=== PATIENT | male | born 1955 | race Caucasian/White ===

== ENCOUNTER 2019-11-22 15:03 | Observation (INO) | payer MEDICARE ==
[2019-11-22 15:09] VITALS: RESP 18
--- NOTE | 2019-11-22 15:40 | ED ---
General Adult HPI - General Chief complaint: Chest Pain Stated complaint: Chest heaviness Time Seen by Provider: 11/22/19 15:15 Source: patient, RN notes reviewed, old records reviewed Mode of arrival: ambulatory Limitations: no limitations - History of Present Illness Initial comments: 63-year-old male presenting for evaluation of chest discomfort. Patient has had symptoms of chest tightness for the past 48 hours with some mild dyspnea. No diaphoresis, no vomiting. He has no known history of CAD. He has strong family history of coronary artery disease including his father who had bypass surgery in his 40s. He is a diabetic and has history of hypertension presented nonsmoker. Patient had outpatient stress test at [facility] which showed stress-induced ischemia at the cardiac apex. Patient is currently on aspirin, lisinopril, metformin and statin. He denies symptoms at the time my evaluation, no chest pain, no dyspnea. No abdominal pain. No fever or chills. No cough. No lower extremity pain or swelling. - Related Data Allergies Allergy/AdvReac Type Severity Reaction Status Date / Time No Known Allergies Allergy Verified 11/22/19 15:09 Review of Systems ROS Statement: Those systems with pertinent positive or pertinent negative responses have been documented in the HPI. ROS Other: All systems not noted in ROS Statement are negative. Past Medical History Past Medical History: Diabetes Mellitus, Hypertension History of Any Multi-Drug Resistant Organisms: None Reported Past Surgical History: Cholecystectomy Additional Past Surgical History / Comment(s): retnia Past Psychological History: No Psychological Hx Reported Smoking Status: Former smoker Past Alcohol Use History: Occasional Past Drug Use History: None Reported General Exam Limitations: no limitations General appearance: alert, in no apparent distress Head exam: Present: atraumatic, normocephalic Eye exam: Present: normal appearance, PERRL ENT exam: Present: normal exam Neck exam: Present: normal inspection. Absent: tenderness, meningismus Respiratory exam: Present: normal lung sounds bilaterally. Absent: respiratory distress, wheezes Cardiovascular Exam: Present: regular rate, normal rhythm GI/Abdominal exam: Present: soft. Absent: distended, tenderness Extremities exam: Present: normal inspection, normal capillary refill. Absent: pedal edema, calf tenderness Neurological exam: Present: alert, oriented X3, CN II-XII intact. Absent: motor sensory deficit Psychiatric exam: Present: normal affect, normal mood Skin exam: Present: warm, dry, intact. Absent: cyanosis, diaphoretic Course Vital Signs 11/22/19 15:05 Temperature 97.8 F Pulse Rate 58 L Respiratory 18 Rate Blood Pressure 146/93 O2 Sat by Pulse 98 Oximetry EKG Findings - EKG Comments: EKG Findings:: EKG: Sinus rhythm, rate of 60, left anterior fascicular block T-wave inversion in lead 3, cannot rule out inferior infarct, no ST segment elevation, WV interval 192, QRS duration 114, QTC 428 Medical Decision Making - Medical Decision Making 63-year-old male with vague chest discomfort, positive outpatient stress test. Initial workup reveals normal CBC, normal CMP, negative initial troponin. EKG negative for ST segment elevation. Chest x-ray clear of focal pneumonia, no pneumothorax,, no acute findings. Patient's is given aspirin, initiated on heparin, he will be admitted for unstable angina. Chest pain-free while in the emergency department. Case discussed with Dr. Garcia who will admit patient. Serial cardiac enzymes will be obtained, echo ordered. - Lab Data Result diagrams: 11/22/19 15:32 11/22/19 15:32 Lab Results 11/22/19 11/22/19 11/22/19 Range/Units 15:32 15:32 15:32 WBC 7.5 (3.8-10.6) k/uL RBC 5.52 (4.30-5.90) m/uL Hgb 16.4 (13.0-17.5) gm/dL Hct 46.1 (39.0-53.0) % MCV 83.5 (80.0-100.0) fL MCH 29.7 (25.0-35.0) pg MCHC 35.6 (31.0-37.0) g/dL RDW 12.5 (11.5-15.5) % Plt Count 181 (150-450) k/uL Neutrophils % 48 % Lymphocytes % 37 % Monocytes % 6 % Eosinophils % 4 % Basophils % 2 % Neutrophils # 3.6 (1.3-7.7) k/uL Lymphocytes # 2.8 (1.0-4.8) k/uL Monocytes # 0.4 (0-1.0) k/uL Eosinophils # 0.3 (0-0.7) k/uL Basophils # 0.2 (0-0.2) k/uL PT 10.9 (9.0-12.0) sec INR 1.1 (<1.2) APTT 25.8 (22.0-30.0) sec Sodium 137 (137-145) mmol/L Potassium 4.0 (3.5-5.1) mmol/L Chloride 104 (98-107) mmol/L Carbon Dioxide 22 (22-30) mmol/L Anion Gap 11 mmol/L BUN 14 (9-20) mg/dL Creatinine 0.78 (0.66-1.25) mg/dL Est GFR (CKD-EPI)AfAm >90 (>60 ml/min/1.73 sqM) Est GFR (CKD-EPI)NonAf >90 (>60 ml/min/1.73 sqM) Glucose 110 H (74-99) mg/dL Calcium 9.4 (8.4-10.2) mg/dL Magnesium 2.2 (1.6-2.3) mg/dL Total Bilirubin 1.5 H (0.2-1.3) mg/dL AST 24 (17-59) U/L ALT 24 (4-49) U/L Alkaline Phosphatase 63 (38-126) U/L Troponin I (0.000-0.034) ng/mL Total Protein 7.7 (6.3-8.2) g/dL Albumin 4.6 (3.5-5.0) g/dL 11/22/19 Range/Units 15:32 WBC (3.8-10.6) k/uL RBC (4.30-5.90) m/uL Hgb (13.0-17.5) gm/dL Hct (39.0-53.0) % MCV (80.0-100.0) fL MCH (25.0-35.0) pg MCHC (31.0-37.0) g/dL RDW (11.5-15.5) % Plt Count (150-450) k/uL Neutrophils % % Lymphocytes % % Monocytes % % Eosinophils % % Basophils % % Neutrophils # (1.3-7.7) k/uL Lymphocytes # (1.0-4.8) k/uL Monocytes # (0-1.0) k/uL Eosinophils # (0-0.7) k/uL Basophils # (0-0.2) k/uL PT (9.0-12.0) sec INR (<1.2) APTT (22.0-30.0) sec Sodium (137-145) mmol/L Potassium (3.5-5.1) mmol/L Chloride (98-107) mmol/L Carbon Dioxide (22-30) mmol/L Anion Gap mmol/L BUN (9-20) mg/dL Creatinine (0.66-1.25) mg/dL Est GFR (CKD-EPI)AfAm (>60 ml/min/1.73 sqM) Est GFR (CKD-EPI)NonAf (>60 ml/min/1.73 sqM) Glucose (74-99) mg/dL Calcium (8.4-10.2) mg/dL Magnesium (1.6-2.3) mg/dL Total Bilirubin (0.2-1.3) mg/dL AST (17-59) U/L ALT (4-49) U/L Alkaline Phosphatase (38-126) U/L Troponin I <0.012 (0.000-0.034) ng/mL Total Protein (6.3-8.2) g/dL Albumin (3.5-5.0) g/dL Critical Care Time Critical Care Time: Yes Total Critical Care Time: 35 Disposition Clinical Impression: Unstable angina pectoris Disposition: ADMITTED IP TO THIS [facility] Condition: Stable Is patient prescribed a controlled substance at d/c from ED?: No Referrals: None,Stated [Primary Care Provider] - 1-2 days Decision to Admit Reason: Admit from EC Decision Date: 11/22/19 Decision Time: 16:43
[2019-11-22 15:49] LABS: Basophils # (A) 0.2 k/uL (0-0.2); Basophils % (A) 2 %; Eosinophils # (A) 0.3 k/uL (0-0.7); Eosinophils % (A) 4 %; HCT 46.1 % (39.0-53.0); HGB 16.4 gm/dL (13.0-17.5); Lymphocytes # (A) 2.8 k/uL (1.0-4.8); Lymphocytes % (A) 37 %; MCH 29.7 pg (25.0-35.0); MCHC 35.6 g/dL (31.0-37.0); MCV 83.5 fL (80.0-100.0); Mean Platelet Volume 7.8; Monocytes # (A) 0.4 k/uL (0-1.0); Monocytes % (A) 6 %; Neutrophils # (A) 3.6 k/uL (1.3-7.7); Neutrophils % (A) 48 %; Platelet Count 181 k/uL (150-450); RBC 5.52 m/uL (4.30-5.90); RDW 12.5 % (11.5-15.5); WBC 7.5 k/uL (3.8-10.6)
--- NOTE | 2019-11-22 15:53 | XR ---
EXAMINATION TYPE: XR chest 2V DATE OF EXAM: 11/22/2019 COMPARISON: NONE HISTORY: Remaining chest pain and pressure for one week with hypertension. TECHNIQUE: Frontal and lateral views of the chest are obtained. FINDINGS: There is no focal air space opacity, pleural effusion, or pneumothorax seen. The cardiac silhouette size is within normal limits. The osseous structures are intact. Mild degenerative skelton e of the spine. IMPRESSION: No acute cardiopulmonary process.
[2019-11-22 15:57] LABS: INR 1.1 (<1.2); Partial Thromboplastin Time 25.8 sec (22.0-30.0); Prothrombin Time 10.9 sec (9.0-12.0)
[2019-11-22 16:04] LABS: ALT 24 U/L (4-49); AST 24 U/L (17-59); African American GFR (CKD) >90 (>60 ml/min/1.73 sqM); Albumin 4.6 g/dL (3.5-5.0); Alkaline Phosphatase 63 U/L (38-126); Anion Gap 11 mmol/L; Blood Urea Nitrogen 14 mg/dL (9-20); Calcium 9.4 mg/dL (8.4-10.2); Carbon Dioxide 22 mmol/L (22-30); Chloride 104 mmol/L (98-107); Glucose 110 mg/dL (74-99); Magnesium 2.2 mg/dL (1.6-2.3); Non-African American GFR(CKD) >90 (>60 ml/min/1.73 sqM); Sodium 137 mmol/L (137-145); Total Bilirubin 1.5 mg/dL (0.2-1.3); Total Protein 7.7 g/dL (6.3-8.2)
[2019-11-22] MEDS ORDERED: HEPARIN SODIUM,PORCINE 5,000 UNIT/ML 1 ML VIAL IV ONE (16:34)
[2019-11-22] MEDS ORDERED: NITROGLYCERIN SL TABS 0.4 MG TAB SUBLINGUAL PRN (16:34)
[2019-11-22] MEDS ORDERED: HEPARIN SOD,PORK IN 0.45% NACL 25,000 UNIT in 0.45% NACL 1 250ML.BAG IV SCH (16:45)
[2019-11-22] MEDS ORDERED: TEMAZEPAM 15 MG CAP PO PRN (19:38)
[2019-11-22] MEDS ORDERED: HYDROcodone/APAP 5-325MG 1 EACH TAB PO PRN (19:38)
[2019-11-22] MEDS ORDERED: ACETAMINOPHEN TAB 500 MG TAB PO PRN (19:38)
[2019-11-22] MEDS ORDERED: ALPRAZolam 0.25 MG TAB PO PRN (19:38)
[2019-11-22] MEDS: INSULIN ASPART (NovoLOG) 100 UNIT/ML VIAL SQ SCH (20:52)
[2019-11-22 21:00] LABS: Glucose,Whole Blood 164 mg/dL (75-99)
[2019-11-22] MEDS ORDERED: LATANOPROST 0.005% OPHTH DROPS 2.5 ML BTL LEFT EYE SCH (21:00)
[2019-11-22] MEDS ORDERED: HEPARIN SODIUM,PORCINE 5,000 UNIT/ML 1 ML VIAL IV PRN (23:26)
--- NOTE | 2019-11-23 01:37 | HP ---
HISTORY AND PHYSICAL DATE OF SERVICE: 11/22/2019 CHIEF COMPLAINT: Chest pain. HISTORY OF PRESENT ILLNESS: This 63-year-old gentleman with a past medical history of multiple medical problems including recurrent diabetes, hypertension, hyperlipidemia, is being followed by primary physician in the [facility] area, was living near [place]. The patient apparently had EKG changes and recently patient had a stress test done which showed abnormal testing and the patient was in the process of obtaining a cardiology consultation, but however, at this time the patient is complaining of heaviness in the anterior part of the chest which is mild to moderate intensity without any without any associated nausea palpation and some shortness of breath. Complained of and the patient has a family history of coronary artery disease, because of multiple symptomatology, patient went to a local hospital and subsequently referred to [facility] and was admitted for further evaluation and treatment. The EKG showed ST-T changes and Q-waves almost QS complex in 2 3 AVF also. There is no history of fever rigors no headache loss: Seizures at this time. PAST MEDICAL HISTORY: History of diabetes, hypertension, hyperlipidemia, history of cholecystectomy. MEDICATIONS: Home medications are: 1. Timoptic 1 daily. 2. Zestoretic 1 p.o. daily. 3. Lipitor 80 mg q.h.s. 4. Aspirin 320 mg daily. 5. Metformin 500 mg p.o. b.i.d. 6. Prilosec 20 mg daily. 7. Latanoprost. ALLERGIES: None. FAMILY HISTORY: History of coronary artery disease in the family. History of CAD/CABG. SOCIAL HISTORY: Previous history of smoking. No history of current smoking or alcohol intake. REVIEW OF SYSTEMS: ENT: No diminished vision. Diminished hearing. CARDIOVASCULAR system as mentioned earlier. RESPIRATORY: As mentioned earlier. GI no nausea or vomiting. no dysuria. Nervous system: No numbness or weakness. ALLERGY/IMMUNOLOGY: No asthma or hayfever. MUSCULOSKELETAL as mentioned earlier. HEMATOLOGY/ONCOLOGY: No history of anemia. ENDOCRINE: History of diabetes. CONSTITUTIONAL: As mentioned earlier. DERMATOLOGY: Negative. RHEUMATOLOGY negative. PSYCHIATRY as mentioned earlier. PHYSICAL EXAMINATION: The patient is alert and oriented times three. Pulse 98. Blood pressure 132/80, respiration 18, temperature 97.7, pulse ox 98% on room air. HEENT is conjunctivae normal. Neck: No JVD. CARDIOVASCULAR: S1, S2 normal. RESPIRATORY: Breath sounds diminished in the bases. No rhonchi. No crackles. ABDOMEN: Soft, nontender. No mass palpable. LEGS: No edema. No swelling. Nervous system: Higher functions as mentioned earlier. Moves all 4 limbs. No focal motor or sensory deficits. SKIN: No ulcer, no rashes and no bleeding. JOINTS: No active deforming arthropathy. LABS: CBC within normal limits. Troponin less than 0.012. ASSESSMENT: 1. Chest pain possible unstable angina. 2. Recent positive stress test. 3. Abnormal EKG possibly indicating old myocardial infarction. 4. Diabetes type 2. 5. Hypertension. 6. Hyperlipidemia. 7. Cholecystectomy. 8. Right eye retinal detachment. 9. History of MRSA. 10.Nicotine dependence. 11.Obesity, body mass of 34.7. RECOMMENDATION: In this 63 -year-old gentleman who presented with multiple complex medical issues, we will monitor the patient closely, continue the current medications, management and symptomatic treatment. Unstable angina protocol. Cardiology consultation. Possible cardiac cath. Resume the rest of medications home medications. Follow the patient closely. I would recommend the patient follow up with primary physician and cardiology closely after discharge. Otherwise, the prognosis guarded because of multiple complex medical issues. Further recommendations to follow the patient. MMODL / IJN: [id number] / CHEL
[2019-11-23 07:13] LABS: Glucose,Whole Blood 114 mg/dL (75-99)
[2019-11-23 07:38] LABS: Basophils # (A) 0.1 k/uL (0-0.2); Basophils % (A) 2 %; Eosinophils # (A) 0.4 k/uL (0-0.7); Eosinophils % (A) 5 %; HCT 48.2 % (39.0-53.0); HGB 16.2 gm/dL (13.0-17.5); Lymphocytes # (A) 3.3 k/uL (1.0-4.8); Lymphocytes % (A) 48 %; MCH 28.8 pg (25.0-35.0); MCHC 33.6 g/dL (31.0-37.0); MCV 85.8 fL (80.0-100.0); Mean Platelet Volume 7.6; Monocytes # (A) 0.3 k/uL (0-1.0); Monocytes % (A) 4 %; Neutrophils # (A) 2.5 k/uL (1.3-7.7); Neutrophils % (A) 37 %; Platelet Count 169 k/uL (150-450); RBC 5.61 m/uL (4.30-5.90); RDW 12.7 % (11.5-15.5); WBC 6.7 k/uL (3.8-10.6)
[2019-11-23] MEDS ORDERED: SODIUM CHLORIDE 0.9% 1,000 ML in EMPTY BAG 1 BAG IV ONE (08:35)
[2019-11-23 08:55] LABS: African American GFR (CKD) >90 (>60 ml/min/1.73 sqM); Anion Gap 9 mmol/L; Blood Urea Nitrogen 14 mg/dL (9-20); Calcium 9.2 mg/dL (8.4-10.2); Carbon Dioxide 23 mmol/L (22-30); Chloride 106 mmol/L (98-107); Cholesterol 104 mg/dL (<200); Glucose 131 mg/dL (74-99); HDL Cholesterol 50 mg/dL (40-60); LDL Cholesterol,Calculated 36 mg/dL (0-99); Non-African American GFR(CKD) >90 (>60 ml/min/1.73 sqM); Potassium 3.8 mmol/L (3.5-5.1); Sodium 138 mmol/L (137-145); Triglycerides 91 mg/dL (<150)
[2019-11-23] MEDS ORDERED: ATORVASTATIN 80 MG TAB PO SCH (09:00)
[2019-11-23] MEDS ORDERED: PANTOPRAZOLE 40 MG TABLET PO SCH (09:00)
[2019-11-23] MEDS ORDERED: LISINOPRIL-HCTZ 20-12.5 MG 1 EACH TAB PO SCH (09:00)
[2019-11-23] MEDS ORDERED: ASPIRIN 81 MG PO SCH (09:00)
[2019-11-23] MEDS ORDERED: ASPIRIN 325 MG TAB PO SCH ×2 (09:00)
[2019-11-23] MEDS ORDERED: TIMOLOL 0.5% OPHTH DROPS 5 ML BTL RIGHT EYE SCH (09:00)
[2019-11-23] MEDS ORDERED: TIMOLOL 0.5% OPHTH DROPS 5 ML BTL LEFT EYE SCH (09:00)
[2019-11-23] MEDS: INSULIN ASPART (NovoLOG) 100 UNIT/ML VIAL SQ SCH ×3 (09:32→18:07)
--- NOTE | 2019-11-23 09:35 | P.CRDCN ---
History of Present Illness History of present illness: HISTORY OF PRESENTING ILLNESS This is a pleasant 63-year-old male past medical history significant for a tension, dyslipidemia and diabetes mellitus. 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 We have been asked to see in consultation for chest pain. He states for the previous 2 days she has been experiencing intermittent episodes of shortness of breath. The first time it happened was Saturday night he was woken up from sleep with a discomfort in the midsternal region described as a tightness. This did subside on its own with no associated symptoms. Yesterday he again had an episode of chest discomfort again that occurred with activity. He also recently had a stress test at [facility] that was noted to have some reversible defect in the apical region with normal EF. He is seen and examined sitting up in bed with his spouse at the bedside. He has significant family history of coronary artery disease with his father having CAD in his 40's. DIAGNOSTICS EKG reveals sinus mechanism with a left anterior fascicular block. Chest xray negative for an acute cardiopulmonary process. Laboratory reviewed, CBC unremarkable, sodium 138, potassium 3.8, creatinine 0.79 with a GFR greater than 90, cardiac enzymes negative 3, LDL 36. Current cardiac medications include lisinopril/HCTZ 20/12.5 mg daily, atorvastatin 80 mg daily and aspirin 325 mg daily. REVIEW OF SYSTEMS At the time of my exam: CONSTITUTIONAL: Denies fever or chills. CARDIOVASCULAR: Denies chest pain, shortness of breath, orthopnea, PND or palpitations. RESPIRATORY: Denies cough. GASTROINTESTINAL: Denies abdominal pain, diarrhea, constipation, nausea or vomiting. MUSCULOSKELETAL: Denies myalgias. NEUROLOGIC: Denies numbness, tingling or weakness. ENDOCRINE: Denies fatigue, weight change, polydipsia or polyurina. GENITOURINARY: Denies burning, hematuria or urgency with micturation. HEMATOLOGIC: Denies history of anemia or bleeding. PHYSICAL EXAMINATION Blood pressure 144/83 heart rate 55 afebrile and maintaining oxygen saturation on room air. CONSTITUTIONAL: No apparent distress. HEENT: Head is normocephalic. Pupils are equal, round. Sclerae anicteric. Mucous membranes of the mouth are moist. No JVD. No carotid bruit. CHEST EXAMINATION: Lungs are clear to auscultation. No chest wall tenderness is noted on palpation or with deep breathing. HEART EXAMINATION: Regular rate and rhythm. S1, S2 heard. No murmurs, gallops or rub. ABDOMEN: Soft, nontender. Positive bowel sounds. EXTREMITIES: 2+ peripheral pulses, no lower extremity edema and no calf tenderness. NEUROLOGIC EXAMINATION: Patient is awake, alert and oriented x3. ASSESSMENT Unstable angina Hypertension Dyslipidemia Diabetes mellitus PLAN Recommend proceeding with cardiac catheterization to assess for underlying coronary artery disease. I have discussed the risks, benefits and alternative therapies for the above-mentioned procedure and for both sedation/analgesia as well as necessary blood product administration, if indicated, as they pertain to this patient. The patient has indicated understanding and acceptance of the risks and procedures discussed. Questions have been answered appropriately and he is agreeable to move forward with the above-stated procedure. Further recommendations to follow based on clinical course. Thank you kindly for this consultation. Nurse Practitioner note has been reviewed, I agree with a documented findings and plan of care. Patient was seen and examined. Past Medical History Past Medical History: Diabetes Mellitus, Hyperlipidemia, Hypertension History of Any Multi-Drug Resistant Organisms: None Reported Past Surgical History: Cholecystectomy Additional Past Surgical History / Comment(s): right eye retina detachment Past Anesthesia/Blood Transfusion Reactions: No Reported Reaction Past Psychological History: No Psychological Hx Reported Smoking Status: Former smoker Past Alcohol Use History: Occasional Past Drug Use History: None Reported - Past Family History Father Family Medical History: Coronary Artery Disease (CAD) Additional Family Medical History / Comment(s): CABG x4. at 68. Mother Additional Family Medical History / Comment(s): cholecystecomy. . Medications and Allergies Home Medications Medication Instructions Recorded Confirmed Type Aspirin 325 mg PO DAILY 11/22/19 11/22/19 History Atorvastatin [Lipitor] 80 mg PO DAILY 11/22/19 11/22/19 History Latanoprost/Pf [Latanoprost 0.005% 1 drop LEFT EYE HS 11/22/19 11/22/19 History Eye Drop] Lisinopril-Hctz 20-12.5 mg 1 tab PO DAILY 11/22/19 11/22/19 History [Zestoretic 20-12.5] Omeprazole [PriLOSEC] 20 mg PO DAILY 11/22/19 11/22/19 History Timolol 0.5% Ophth Soln [Timoptic 1 drop LEFT EYE DAILY 11/22/19 11/22/19 History 0.5% Ophth Soln] metFORMIN HCL 500 mg PO BID 11/22/19 11/22/19 History Allergies Allergy/AdvReac Type Severity Reaction Status Date / Time No Known Allergies Allergy Verified 11/22/19 17:42 Physical Exam Vitals: Vital Signs Temp Pulse Pulse Resp BP BP Pulse Ox 11/23/19 08:00 97.5 F L 55 L 18 144/83 97 11/23/19 04:00 97.6 F 51 L 18 124/69 95 11/23/19 00:00 97.5 F L 54 L 18 136/76 94 L 11/22/19 20:00 98.1 F 61 18 133/75 94 L 11/22/19 17:39 97.7 F 98 18 132/82 98 11/22/19 17:00 53 L 18 131/68 98 11/22/19 16:30 56 L 16 130/61 97 11/22/19 15:30 60 18 139/98 99 11/22/19 15:05 97.8 F 58 L 18 146/93 98 Intake and Output 11/22/19 11/23/19 11/23/19 22:59 06:59 14:59 Intake Total 68.46 Balance 68.46 Intake: Intake, IV Titration 68.46 Amount Heparin Sod,Pork in 0.45% 68.46 NaCl 25,000 unit In 0.45 % NaCl 1 250ml.bag @ 8.2 UNITS/KG/HR 10.043 mls/hr IV .Q24H [facility] Rx#: [id number] Other: Voiding Method Toilet Toilet # Voids 1 Weight 122.47 kg 123.5 kg Results 11/23/19 07:20 11/23/19 07:20 Cardiac Enzymes 11/22/19 11/22/19 11/22/19 Range/Units 15:32 15:32 22:22 AST 24 (17-59) U/L Troponin I <0.012 <0.012 (0.000-0.034) ng/mL 11/23/19 Range/Units 03:09 AST (17-59) U/L Troponin I <0.012 (0.000-0.034) ng/mL Coagulation 02/07/0311/22/19 11/23/19 Range/Units 15:32 22:22 07:20 PT 10.9 (9.0-12.0) sec APTT 25.8 32.3 H 72.4 H (22.0-30.0) sec Lipids 11/23/19 Range/Units 07:20 Triglycerides 91 (<150) mg/dL Cholesterol 104 (<200) mg/dL HDL Cholesterol 50 (40-60) mg/dL CBC 11/22/19 11/23/19 Range/Units 15:32 07:20 WBC 7.5 6.7 (3.8-10.6) k/uL RBC 5.52 5.61 (4.30-5.90) m/uL Hgb 16.4 16.2 (13.0-17.5) gm/dL Hct 46.1 48.2 (39.0-53.0) % Plt Count 181 169 (150-450) k/uL Comprehensive Metabolic Panel 11/22/19 11/23/19 Range/Units 15:32 07:20 Sodium 137 138 (137-145) mmol/L Potassium 4.0 3.8 (3.5-5.1) mmol/L Chloride 104 106 (98-107) mmol/L Carbon Dioxide 22 23 (22-30) mmol/L BUN 14 14 (9-20) mg/dL Creatinine 0.78 0.79 (0.66-1.25) mg/dL Glucose 110 H 131 H (74-99) mg/dL Calcium 9.4 9.2 (8.4-10.2) mg/dL AST 24 (17-59) U/L ALT 24 (4-49) U/L Alkaline Phosphatase 63 (38-126) U/L Total Protein 7.7 (6.3-8.2) g/dL Albumin 4.6 (3.5-5.0) g/dL Current Medications Generic Name Dose Route Start Last Admin Trade Name Freq PRN Reason Stop Dose Admin Acetaminophen 500 mg 11/22/19 19:38 Tylenol Tab PO Q6HR PRN Fever and/ or MILD Pain Hydrocodone Bitart/Acetaminophen 1 each 11/22/19 19:38 [place] 5-325 PO Q6HR PRN MODERATE PAIN Alprazolam 0.25 mg 11/22/19 19:38 Xanax PO TID PRN Anxiety Aspirin 325 mg 11/23/19 09:00 Aspirin PO DAILY [facility] Atorvastatin Calcium 80 mg 11/23/19 09:00 Lipitor PO DAILY [facility] Lisinopril/HCTZ 1 each 11/23/19 09:00 Zestoretic 20-12.5 PO DAILY [facility] Heparin Sodium (Porcine) 0 unit 11/22/19 23:26 11/22/19 23:49 Heparin IV 4,000 unit PER PROTOCOL PRN Administration Low PTT Protocol Heparin Sodium/Sodium Chloride 250 mls @ 10.043 mls/hr 11/22/19 16:45 11/22/19 23:51 25,000 unit/ Sodium Chloride IV 11.2 units/kg/hr .Q24H ME[facility] 13.717 mls/hr Titration Protocol 8.2 UNITS/KG/HR Sodium Chloride 1,000 ml/ IV 1,000 mls @ 123.5 mls/hr 11/23/19 08:35 Solution IV 11/23/19 16:40 .Q8H6M ONE 1 ML/KG/HR Insulin Aspart 0 unit 11/22/19 21:00 11/22/19 20:52 Novolog SQ Not Given ACHS [facility] Protocol Latanoprost 1 drops 11/22/19 21:00 11/22/19 20:53 Xalatan 0.005% LEFT EYE 1 drops HS MELLISA Administration Nitroglycerin 0.4 mg 11/22/19 16:34 Nitrostat SUBLINGUAL Q5M PRN Chest Pain Pantoprazole Sodium 40 mg 11/23/19 09:00 Protonix PO DAILY [facility] Temazepam 15 mg 11/22/19 19:38 Restoril PO HS PRN Insomnia Timolol Maleate 1 drops 11/23/19 09:00 Timoptic RIGHT EYE DAILY [facility] Intake and Output 11/22/19 11/23/19 11/23/19 22:59 06:59 14:59 Intake Total 68.46 Balance 68.46 Intake: Intake, IV Titration 68.46 Amount Heparin Sod,Pork in 0.45% 68.46 NaCl 25,000 unit In 0.45 % NaCl 1 250ml.bag @ 8.2 UNITS/KG/HR 10.043 mls/hr IV .Q24H [facility] Rx#: [id number] Other: Voiding Method Toilet Toilet # Voids 1 Weight 122.47 kg 123.5 kg 11/23/19 07:20 11/23/19 07:20
[2019-11-23 11:33] VITALS: TEMP 97.6
[2019-11-23 11:40] LABS: Glucose,Whole Blood 118 mg/dL (75-99)
[2019-11-23] MEDS ORDERED: LIDOCAINE 1% INJ 10MG/ML (20 ML MDV) ONE (13:23)
[2019-11-23] MEDS ORDERED: VERAPAMIL 2.5 MG/ML 2 ML AMP ONE (13:54)
[2019-11-23] MEDS ORDERED: HEPARIN SODIUM 1,000 UN/ML (10ML VL) ONE (13:55)
[2019-11-23] MEDS ORDERED: MIDAZOLAM 2 MG/2 ML VIAL IVP ONE (14:27)
[2019-11-23] MEDS ORDERED: IV FLUID CONTINUATION 200 ML IV ONE (14:28)
[2019-11-23] MEDS ORDERED: LIDOCAINE 1% INJ 10MG/ML (20 ML MDV) SQ ONE (14:31)
[2019-11-23] MEDS: VERAPAMIL SYRINGE (5 MG/10 ML) INTRAARTER ONE ×2 (14:32→14:42)
[2019-11-23] MEDS ORDERED: HEPARIN SODIUM 1,000 UN/ML (10ML VL) IV ONE (14:34)
[2019-11-23] MEDS ORDERED: SODIUM CHLORIDE 0.9% 1,000 ML IV ONE (14:36)
[2019-11-23] MEDS ORDERED: IOPAMIDOL-370 100ML BTL INJ ONE (14:43)
[2019-11-23] MEDS ORDERED: SODIUM CHLORIDE 0.9% 1,000 ML IV SCH (15:00)
[2019-11-23 16:58] LABS: Glucose,Whole Blood 105 mg/dL (75-99)
--- NOTE | 2019-11-23 17:16 | PN ---
PROGRESS NOTE DATE OF SERVICE: 11/23/2019 This 63-year-old gentleman who was admitted with chest pain had a recent positive stress test. No chest pain. No palpitations. No fever. Cardiology is planning cardiac catheterization today. PHYSICAL EXAMINATION: Alert and oriented x3. Pulse is 53, blood pressure 138/83, respiration 18, temperature 97.6, pulse ox 96% on room air. HEENT: Conjunctivae normal. NECK: No jugular venous distention. CARDIOVASCULAR SYSTEM: S1, S2 muffled. RESPIRATORY SYSTEM: Breath sounds diminished at the bases. No rhonchi. No crackles. ABDOMEN: Soft, non-tender. LEGS: No edema. No swelling. NERVOUS SYSTEM: No focal deficit. LABS: CBC within normal limits. APTT 72.4. Glucose 118. ASSESSMENT: 1. Chest pain; possible unstable angina. 2. History of recent positive stress test. 3. Abnormal EKG, possibly indicating old myocardial infarction. 4. Diabetes mellitus, type 2. 5. Hypertension. 6. Hyperlipidemia. 7. Cholecystectomy. 8. Right eye retinal detachment history. 9. History of methicillin-resistant Staphylococcus aeruginosa. 10.History of nicotine dependence. 11.History of obesity; body mass index of 34.7. RECOMMENDATIONS AND DISCUSSION: I recommend to continue current medications, continue with the monitoring, symptomatic treatment. Otherwise at this time I recommend following closely with Cardiology. Possible cardiac catheterization. Guarded prognosis. Further recommendations to follow. Continue the rest of the medications. [place] / DAYAMI: [id number] /
[2019-11-23 18:49] VITALS: BP 116/69; PULSE 58
--- NOTE | 2019-11-23 19:18 | ECHOF ---
Referral Reason:UA MEASUREMENTS -------- HEIGHT: 188.0 cm WEIGHT: 123.4 kg BP: 124/69 RVIDd: 4.4 cm (< 3.3) IVSd: 1.5 cm (0.6 - 1.1) LVIDd: 4.6 cm (3.9 - 5.3) LVPWd: 1.3 cm (0.6 - 1.1) IVSs: 2.1 cm LVIDs: 3.1 cm LVPWs: 2.0 cm LAESV Index (A-L): 28.37 ml/m Ao Diam: 3.8 cm (2.0 - 3.7) AV Cusp: 2.8 cm (1.5 - 2.6) LA Diam: 3.9 cm (2.7 - 3.8) MV EXCURSION: 23.232 mm (> 18.000) MV EF SLOPE: 113 mm/s (70 - 150) EPSS: 1.3 cm MV E Taj: 0.67 m/s MV DecT: 328 ms MV A Taj: 0.57 m/s MV E/A Ratio: 1.17 RAP: 5.00 mmHg RVSP: 26.90 mmHg FINDINGS -------- Sinus rhythm. This was a technically adequate study. The left ventricular size is normal. There is moderate concentric left ventricular hypertrophy. O verall left ventricular systolic function is normal with, an EF between 55 - 60 %. The diastolic fi lling pattern is normal for the age of the patient 14.47. The right ventricle is moderately enlarged. Normal LA size by volume 22+/-6 ml/m2. The right atrium is mildly enlarged. Interatrial and interventricular septum intact. The aortic valve is trileaflet and appears structurally normal. There is no evidence of aortic regu rgitation. There is no evidence of aortic stenosis. Mild mitral regurgitation is present. Mild tricuspid regurgitation present. There is no evidence of pulmonary hypertension. The right v entricular systolic pressure, as measured by Doppler, is 26.90mmHg. Trace/mild (physiologic) pulmonic regurgitation. The aortic root size is normal. IVC Not well visulized. There is no pericardial effusion. CONCLUSIONS -------- 1. Sinus rhythm. 2. This was a technically adequate study. 3. The left ventricular size is normal. 4. There is moderate concentric left ventricular hypertrophy. 5. Overall left ventricular systolic function is normal with, an EF between 55 - 60 %. 6. The diastolic filling pattern is normal for the age of the patient 14.47 7. The right ventricle is moderately enlarged. 8. Normal LA size by volume 22+/-6 ml/m2. 9. The right atrium is mildly enlarged. 10. Interatrial and interventricular septum intact. 11. The aortic valve is trileaflet and appears structurally normal. 12. There is no evidence of aortic regurgitation. 13. There is no evidence of aortic stenosis. 14. Mild mitral regurgitation is present. 15. There is no evidence of pulmonary hypertension. 16. The right ventricular systolic pressure, as measured by Doppler, is 26.90mmHg. 17. The aortic root size is normal. 18. IVC Not well visulized. 19. There is no pericardial effusion. CARDIOLOGY CONSULTANT: Huong Ryder RDCS
--- NOTE | 2019-11-24 05:01 | CC ---
CARDIAC CATHETERIZATION REPORT DATE OF SERVICE: 11/23/2019. PROCEDURE: Left heart catheterization and coronary angiography. PERFORMED BY: Dr. Rc Daily. Moderate conscious sedation time was 15 minutes. Patient was administered Versed. Oxygen saturation, hemodynamics and EKG were monitored closely. CLINICAL INFORMATION: Mr. Jimmy Coburn is a 63-year-old obese gentleman with history of hypertension, hyperlipidemia, and type 2 diabetes, who apparently had a slightly abnormal stress test on November 12 of this year in [facility]. He came in because of an episode of chest tightness, pressure and shortness of breath. Troponins were negative, but because of abnormal stress test and continued episodes of chest tightness, I recommended coronary angiography after due discussion regarding risks, benefits, and options. PROCEDURE NOTE: Under local anesthesia and strict aseptic precautions, a 6-Bhutanese introducer placed in the right radial artery. Using a JL3.5 and JR4 catheters I performed coronary angiography and the same right Laly catheter was used to check LV pressures. LV gram was not performed. The sheath was taken out and a large TR band applied as per protocol with saturations of the fingers of the right hand of more than 95%. The patient tolerated procedure well without complications. CARDIAC CATHETERIZATION FINDINGS: The left ventricular end-diastolic pressure was 5 mmHg without any gradient across aortic valve. CORONARY ANGIOGRAPHY FINDINGS: RIGHT CORONARY ARTERY: A large dominant vessel. No significant disease, bifurcates into a large PDA and PLV, has minor irregularities. No significant disease. LEFT MAIN CORONARY ARTERY: Short patent disease-free vessel that bifurcates into LAD and circumflex. LEFT ANTERIOR DESCENDING CORONARY ARTERY: Good caliber vessel gives off a large diagonal branch proximally that sub divides into 2 branches, supplies a sizable amount of myocardium, has no significant disease. The LAD in the mid and distal portion is large caliber and distribution no significant disease, gives off septal and diagonal branches which have minor irregularities. No significant disease. LEFT POSTERIOR CIRCUMFLEX CORONARY ARTERY: Nondominant vessel, gives off a single obtuse marginal and then runs in the AV groove, small in caliber and distribution. No significant disease. FINAL IMPRESSION: This patient has normal filling pressures. Right dominant system. No significant coronary artery disease and no gradient across aortic valve. RECOMMENDATIONS: Findings were discussed with the patient and family. No intervention necessary. Advised continued risk factor modification. Patient can be discharged later today if he remains stable and I will see him in one year. Advised to observe risk factor modification. MMODL / IJN: [id number] /
--- NOTE | 2019-11-27 14:13 | DS ---
DISCHARGE SUMMARY FINAL DIAGNOSES: 1. Chest pain, myocardial infarction ruled out, normal cardiac cath. Possibly musculoskeletal pain. 2. History of recent positive stress test. 3. Abnormal EKG, no evidence of coronary artery disease in the cardiac cath. 4. Diabetes mellitus type 2. 5. Hypertension. 6. Hyperlipidemia. 7. History of cholecystectomy. 8. Right eye retinal detachment history. 9. History of methicillin-resistant Staphylococcus aeruginosa. 10.History of nicotine dependence. 11.History of obesity, body mass index 34.3. Discharge condition is guarded. The patient will be discharged in stable condition with cardiology clearance. HISTORY OF PRESENT ILLNESS: This is a 63-year-old gentleman with a past medical history of chest pain. The patient had an abnormal stress test. Cardiac catheterization showed no evidence of any coronary artery disease. The patient will be discharged in stable condition. On examination, stable cardiovascular. Abdomen is soft. Nervous system no focal deficits. DISCHARGE ADVICE AND MEDICATIONS: 1. Follow up with Dr. Patrica bowers and primary care physician in two to three days. 2. Ecotrin 325 mg po daily. 3. Latanoprost one drop in the left eye. 4. Lipitor 80 mg po daily. 5. Metformin 500 mg orally daily. 6. Prilosec 20 mg orally. 7. Lisinopril/hydrochlorothiazide 10/12.5 mg one orally daily. MMODL / IJN: [id number] /
== END 2019-11-23 21:00 | disposition home or self-care (01) ==
LOC: EC 15:03 → 1SOBS 16:34
PROVIDERS: ADMIT Hospitalist; ATTEND Hospitalist
DX: R07.89 Other chest pain (principal); R06.02 Shortness of breath; I25.9 Chronic ischemic heart disease, unspecified; R94.31 Abnormal electrocardiogram [ECG] [EKG]; E11.9 Type 2 diabetes mellitus without complications; I10 Essential (primary) hypertension; E78.5 Hyperlipidemia, unspecified; I44.4 Left anterior fascicular block; E78.00 Pure hypercholesterolemia, unspecified; E66.9 Obesity, unspecified; Z68.34 Body mass index [BMI] 34.0-34.9, adult; Z79.82 Long term (current) use of aspirin; Z79.899 Other long term (current) drug therapy; Z79.84 Long term (current) use of oral hypoglycemic drugs; Z90.49 Acquired absence of other specified parts of digestive tract; Z87.891 Personal history of nicotine dependence; Z86.14 Personal history of Methicillin resistant Staphylococcus aureus infection; Z86.69 Personal history of other diseases of the nervous system and sense organs; Z82.49 Family history of ischemic heart disease and other diseases of the circulatory system; Z83.79 Family history of other diseases of the digestive system
CPT/HCPCS: 93005 ×2; 96366 ×2; 96376 ×2; 96365; 99291; 36415; 93306; 93458; 80061; 80053; 80048; 83735; 84484 ×2; 85025 ×2; 85610; 85730 ×2; 71046; G0378 ×2; C1769; C1894; J2250; J1644 ×3; J2001; Q9967